=== PATIENT | female | born 1990 | race Caucasian/White ===

== ENCOUNTER 2016-04-25 11:45 | Emergency (ER) | payer MEDICAID ==
[~2016-04-25] VITALS: Ht 172.7 cm; Wt 55.8 kg
[2016-04-25] MEDS ORDERED: BROMFED DM COU118 ML PO (12:29)
[2016-04-25] MEDS ORDERED: FLONASE 50 MCG16 GM (12:29)
[2016-04-25 12:30] VITALS: BP 115/81
--- NOTE | 2016-04-25 12:30 | [facility] Report ---
History of Present Issue Date/Time Seen by Provider 04/25/16 1221 Visit Reason Pt arrived:Walked Presenting Problem:PT C/O HEAD CONGESTION, FULLNESS IN EARS CAUSING DIZZINESS, RUNNY NOSE Location if Accident: Onset of symptoms date/time:/ or onset unknown for:MEDICAL HX UNKNOWN Have you (or family members/close friends) recently traveled outside the [place]? N If Yes, where/when: Have you had exposure to infectious disease within the past month? TB? Other? Specify: c/o head congestion, ear pressure, rhinorrhea, nasal congestion, PND "causing cough" all starting , 4 days ago. Noticed dizziness with rapid head movement last night but not today. "Just feel foggy headed". Mucinex and unknown OTC medication hasn't helped. Hasn't tried a nose spray of any kind. No known sick contacts. Source patient Exam Limitations no limitations ALLERGIES Coded Allergies: No Known Allergies (04/25/16) History Medical History General CAD? No Angina: No NV: No Hypertension? No Hyperlipidemia? No CHF? No DVT? No PE? No COPD? No Asthma? No Anemia? No GERD? No Gastric ulcers? No GI Bleed? No Hernia? No Thyroid Problems? No Hypothyroidism? No CVA? No Seizures? No Diabetes? No Renal Insuffiency? No UTI? No Stones? No BPH? No GB Disease: No Nephritic Syndrome? No Asplenia? No Hepatitis? No Sickle Cell Disease? No Arthritis? No Migraines? No Cataracts? No Glaucoma? No MRSA? No HIV? No TB? No Anxiety? No Depression? No Cancer? No More? No Immunization HX DT/Tetanus 1-4 YRS Flu NEVER Pneumonia < 1 YR AGO Surgical Hx Previous Surgery?N Family History Family HX Diabetes Yes CAD Yes Hypertension Yes Hyperlipidemia No Cancer Yes TB Yes Social History Smoking Hx Smoker: Never Smoker Tobacco: No Alcohol Alcohol: No Review of Systems All Other Systems Reviewed and Negative Constitutional see HPI, denies fever, denies malaise Eyes denies drainage ENT see HPI, throat pain (first night, resolved). denies: throat swelling. Respiratory denies shortness of breath, denies stridor, denies wheezing Cardiovascular denies chest pain Gastrointestinal denies no symptoms reported Musculoskeletal denies other (aches) Skin denies rash Psychiatric/Neurological denies headache Physical Exam Vital Signs Vital Signs Date Time Temp Pulse Resp B/P Pulse O2 O2 Flow FiO2 Ox Delivery Rate 04/25 1154 97.3 74 16 115/81 96 General Appearance normal appearance, no apparent distress Eye Exam - bilateral eye normal exam Ear, Nose, Throat normal ENT inspection (x/ mild nasal congestion) Neck non-tender Respiratory Status No: respiratory distress (no witnessed cough). Lung Sounds anterior: lungs clear. posterior: lungs clear. bilateral: lungs clear. Cardiovascular regular rate/rhythm, no murmur Neurologic alert Skin normal color, warm/dry Lymphatic no adenopathy (cervical) Medical Decision Making LABS/Meds/Orders Pt receiving controlled substance in ED? No Departure Departure Time of Disposition 1227 Disposition DC Home or Self Care(routine) Clinical Impression Primary Impression: Upper respiratory virus Condition STABLE Referrals Jeff Denise MD (Family) Follow up immediately for new or worsening symptoms OR no noticeable improvement over the next 48-72 hours. Patient Instructions DI for Viral Upper Respiratory Infection -- Adult Additional Instructions warm salt water gargles sleep elevated humidifier/vaporizer flonase 2 sprays each nostril daily but may take 2-3 days to notice improvement with it. Bromfed may cause drowsiness. know how it effects you before driving or caring for small children Discharge Counseling Counseled pt/family regarding diagnosis, test results, medications/RX, home care, follow up needs Prescriptions Current Visit Scripts D-METHORPHAN HB/P-EPD HCL/BPM (Bromfed Dm Cough Syrup) 10 ML PO QIDP PRN cough #240 ML Fluticasone Propionate (Flonase 50 Mcg Nasal [place]) 2 SPRAY NA DAILY #1 BOT at 1232
== END 2016-04-25 12:32 | disposition home or self-care (01) ==
LOC: UTC 11:45
DX: J06.9 Acute upper respiratory infection, unspecified (principal)